=== PATIENT | male | born 1955 | race Caucasian/White ===

== ENCOUNTER 2017-11-12 15:54 | Observation (INO) | payer BC ==
[2017-11-12 16:42] LABS: #Eosinphils 0.1 thou/uL (0.0-0.7); #Lymphocytes 1.1 thou/uL (1.20-3.40); #Monocytes 0.7 thou/uL (0.11-0.59); #Neutrophils 5.8 thou/uL (1.40-6.50); %Basophils 0.6 % (0.0-1.0); %Eosinophils 0.8 % (0.0-10.0); %Lymphocytes 13.7 % (21.0-51.0); %Monocytes 9.5 % (0.0-10.0); %Neutrophils 75.4 % (42.0-75.0); Hemoglobin 14.7 g/dL (14.0-18.0); Mean Corpuscular HGB CONC 33.6 g/dL (32.0-36.0); Mean Corpuscular Hemoglobin 31.6 pg (27.0-31.0); Mean Corpuscular Volume 94.1 fL (78.0-98.0); Mean Platelet Volume 11.2 fL (7.4-10.4); Platelet Count 116 thou/uL (130-400); RBC Distribution Width 13.1 % (11.5-14.5); Red Blood Cell (RBC) Count 4.65 mill/uL (4.70-6.10); White Blood Cell (WBC) Count 7.7 thou/uL (4.8-10.8)
[2017-11-12 17:04] LABS: Troponin I 0.072 ng/mL (< 0.028)
--- NOTE | 2017-11-12 17:14 | RAD ---
RADIOGRAPH CHEST 1 VIEW: Date: 11-12-17 Time: 4:28 P.M. HISTORY: 62-year-old male with dyspnea. COMPARISON: 08-27-16 FINDINGS: Again noted is the cardiomegaly. There is diffuse haziness and increased attenuation throughout the r etrocardiac portion of the left lower lobe. Milder haziness at the medial aspect of the right lower l obe. Mild pulmonary venous prominence. Multi-lead left subclavian AICD. No pneumothorax. The retrocar diac portion of the left lower lobe appears more dense on the current study compared to the previous. It is uncertain whether this is due to positional differences or actual greater pulmonary opacificat ion of the left lower lobe. No other interval change. IMPRESSION: 1. Cardiomegaly. 2. Nonspecific left lower lobe pulmonary densities. 3. Automatic implantable cardioverter/defibrillator. TACO POS: MONIQUE
[2017-11-12] MEDS ORDERED: Sodium Chloride 0.9% 100 ML ONE (17:32)
[2017-11-12] MEDS ORDERED: cefTRIAXone\\ROCEPHIN 2 GM VIAL ONE (17:32)
[2017-11-12] MEDS ORDERED: Furosemide 40 MG/4 ML VIAL ONE (17:32)
[2017-11-12 18:20] LABS: ALT (SGPT) 33 U/L (8-55); AST (SGOT) 46 U/L (5-34); Albumin 3.6 g/dL (3.4-4.8); Alkaline Phosphatase 66 U/L (40-150); Anion Gap 17 mmol/L (10-20); BUN (Urea Nitrogen) 33 mg/dL (8.4-25.7); Bilirubin, Total 2.3 mg/dL (0.2-1.2); Calc. Creatinine Clearance 0 mL/min (70-130); Calcium 9.1 mg/dL (7.8-10.44); Carbon Dioxide 22 mmol/L (23-31); Chloride 104 mmol/L (98-107); Estimated GFR-MDRD 37; Globulin 2.3 g/dL (2.4-3.5); Glucose 61 mg/dL (80-115); Protein, Total 5.9 g/dL (5.8-8.1); Sodium 139 mmol/L (136-145)
[2017-11-12] MEDS ORDERED: Azithromycin 500 MG VIAL ONE (18:21)
[2017-11-12] MEDS ORDERED: Acetaminophen 325 MG TAB PO PRN (19:15)
[2017-11-12] MEDS ORDERED: Ondansetron ODT 4 MG TAB SL PRN (19:15)
[2017-11-12] MEDS ORDERED: Ondansetron HCl/PF 4 MG/2 ML Vial IVP PRN (19:15)
[2017-11-12 19:36] VITALS: BMI 26.3
[2017-11-12] MEDS ORDERED: Furosemide 100 MG/10 ML VIAL SLOW IVP SCH (21:00)
[2017-11-12 21:55] LABS: Troponin I 0.111 ng/mL (< 0.028)
[2017-11-13 05:35] LABS: Anion Gap 14 mmol/L (10-20); BUN (Urea Nitrogen) 35 mg/dL (8.4-25.7); Calc. Creatinine Clearance 49 mL/min (70-130); Carbon Dioxide 27 mmol/L (23-31); Chloride 103 mmol/L (98-107); Estimated GFR-MDRD 37; Glucose 65 mg/dL (80-115); Potassium 3.3 mmol/L (3.5-5.1); Sodium 141 mmol/L (136-145)
[2017-11-13 05:39] LABS: Troponin I 0.092 ng/mL (< 0.028)
[2017-11-13] MEDS ORDERED: Carvedilol 6.25 MG TAB PO SCH (11:15)
[2017-11-13] MEDS ORDERED: Furosemide 80 MG TAB PO SCH (11:15)
[2017-11-13] MEDS ORDERED: Lisinopril 10 MG TAB PO SCH (11:15)
[2017-11-13] MEDS ORDERED: Prasugrel 10 MG TAB PO SCH (11:15)
[2017-11-13] MEDS ORDERED: Alogliptin 25 MG TAB PO SCH (11:15)
[2017-11-13 11:17] VITALS: BP 129/89; TEMP 98.2
--- NOTE | 2017-11-13 11:57 | HP ---
DATE OF ADMISSION: 11/12/2017 CHIEF COMPLAINT: Shortness of breath. HISTORY OF PRESENT ILLNESS: This is a 62-year-old male patient of Dr. Celestino Chance's wit h known congestive heart failure. The patient was at home, noted that he had a sudden increase in we ight of 6-7 pounds over the last couple of days along with some shortness of breath and some slight d ifficulty in obtaining a breath. He admits that he had gone off his usual diet and had chili con que so with salted chips and including a beer on the day or so prior to the weight gain and symptoms star ting. He also noted of having a viral URI type situation going through his work office and he did no t feel necessarily the greatest for the day or so prior to coming on and the etiology for his CHF is considered postviral since it is a global hypokinesis combined CHF problem. So in the workup in the ER, he was found to have an effusion and a radiologist said it is impossible to rule out pneumonia at that time, so the ER doctor felt best to put him in overnight just to make sure with antibiotics. A s such, he was admitted for that. PAST MEDICAL HISTORY: Positive for post-viral combined global hypokinesis CHF. His initial EF on di agnosis in 2013 was 10-15%. Last EF done in the Cardiology office was 25% here in the last few month s. He also has history of type 2 diabetes, hypertension, hyperlipidemia, chronic renal insufficiency with a GFR in the 40s and a creatinine running typically 1.7 to 1.8. Also history of Gilbert's. PAST SURGICAL HISTORY: AICD placed in 2013. He had a left rotator cuff repair and also had a cath i n 2013. ALLERGIES: PENICILLIN. CURRENT MEDICATIONS: He is on Lantus 25 units at night, NovoLog sliding scale with each meal. He is on 81 mg aspirin. He is on Effient, I believe that is 100 mg a day. He is also on Lasix 40 mg b.i. d., gabapentin 600 mg daily, lisinopril 10 mg daily, Coreg 6.25 mg b.i.d., Januvia 100 mg daily, and ISMO 30 mg daily, and Zocor 40 mg daily. FAMILY HISTORY: Essentially noncontributory. 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 He is , 2 children, has no toxic habits. REVIEW OF SYSTEMS: He denies any fevers or chills. No headache, no changes in vision or hearing. N o troubles chewing or swallowing. He has had this mild to no cough, shortness of breath as stated in the HPI. No hemoptysis. His cough is definitely not productive. Denies any abdominal pain, denies any changes in GI habits. No diarrhea, constipation, or melena. Denies any dysuria or changes in G U habits. Has noted some mild edema to both lower extremities. No paresis or paresthesias. Denies any psych issues. No suicidal or homicidal ideations and no hallucinations either auditory or visual , no feelings of anxiety or depression. PHYSICAL EXAMINATION: GENERAL: He is sitting up comfortable in the bed, alert and oriented x4, no acute distress, breathin g very easily. HEENT: Essentially unremarkable. Pupils are equal, round, and reactive to light and accommodation. Extraocular movements are intact. Mucosal membranes are moist. NECK: Supple, no JVD, no bruits, no thyromegaly. HEART: S1, S2, with no rubs, murmurs, or gallops. LUNGS: Clear to auscultation. No rales, rhonchi or wheezes. There is a slight decrease in the soun d of the right lower lobe consistent with a mild effusion. ABDOMEN: Soft, nontender, nondistended, no palpable masses, no hepatosplenomegaly. Bowel sounds pos itive throughout. EXTREMITIES: Showed good palpable pulses x4, there is 1+ edema to lower extremities, but no cyanosis or clubbing. NEUROLOGIC: He is alert and oriented x4. Cranial nerves II-XII are equal and symmetrical. There ar e no focal deficits noted. Motor and strength are equal and symmetrical. LABORATORY AND X-RAY FINDINGS: White count is normal at 7.7, H&H is 14 and 43 respectively, 116,000 platelets. Neutrophils 75, lymphocytes 13.7. Sodium is 141, potassium 3.7, chloride is 103, bicarb 27, BUN 13, creatinine is 1.87, glucose at 135. Troponins x3 were 0.11 initially and then 0.09 for t he next 2. His beta natriuretic peptide was elevated at 4627, in the past it ran somewhere between 2 and 3000. Chest x-ray showed no obvious infiltrate, but an effusion, especially on the right side. ASSESSMENT: Congestive heart failure exacerbation. He was kept overnight for observation.
--- NOTE | 2017-11-13 12:07 | DIS ---
DATE OF ADMISSION: 11/12/2017 DATE OF DISCHARGE: 11/13/2017 ADMITTING DIAGNOSES: Congestive heart failure exacerbation with possible pneumonia. DISCHARGE DIAGNOSES: Congestive heart failure exacerbation with known combined post-viral congestive heart failure with an ejection fraction of 25%, also with known diabetes, hypertension, hyperlipidem ia, chronic renal insufficiency, mild hypokalemia. HOSPITAL COURSE: He is a 62-year-old white male patient of Dr. Celestino Chance's who came to the [facility] room with acute shortness of breath. History given to the ER doctor by the patient was that he had had a viral presence going through his office and he was worried about it. He was not feeling t he best so they on that x-ray in the ER, could not exclude pneumonia, so they wanted to put him in to start antibiotics at least to catch anything early on. On further history by me, it turns out the p atient had been eating chips and queso and beer and a whole lot more salty things over the day or two prior to onset of symptoms where he had a 6-7 pound weight gain at the onset of his symptoms. His w tyrone count was normal at 7.7 with no left shift, all consistent with CHF exacerbation and not consist ent with a pneumonia. After being in overnight, having IV Lasix at the time that I see him at time o f discharge, he is breathing back to baseline, feeling fine, so we had a lengthy discussion about con gestive heart failure contingency plans of increasing his 40 mg of Lasix twice a day, increasing that to 80 twice a day for a couple of days and then back down to his 40, also noted that he is not on an oral potassium supplement, recommended that he get at least an [id number] potassium to try to help with that. We discussed the dangers of salt with regards to his situation. So the plan is to discharge home. He will be on Lasix 80 mg twice a day for a couple more days and t hen back down to 40 twice a day. He will eliminate any extra salt that he has in his diet including sodas. He already has an appointment set with Dr. Chance on 11/21/2017. Also recommended that he follow up with the [facility].
--- NOTE | 2017-11-18 21:20 | EKG ---
Test Reason : Blood Pressure : / mmHG Vent. Rate : 085 BPM Atrial Rate : 085 BPM P-R Int : 138 ms QRS Dur : 132 ms QT Int : 466 ms P-R-T Axes : 021 -77 075 degrees QTc Int : 554 ms Electronic ventricular pacemaker Confirmed by RINA GRACIA DO ([id number]), editor greeting card EDDI VELAZQUEZ ([id number]) on 11/18/2017 9:19:59 PM Referred By: Confirmed By:RINA GRACIA DO
== END 2017-11-13 12:00 | disposition home or self-care (01) ==
LOC: ERS 15:54 → INTOOBSV 17:52 → 2NO 17:52
PROVIDERS: ADMIT Family Medicine; ATTEND Family Medicine
DX: I13.0 Hypertensive heart and chronic kidney disease with heart failure and stage 1 through stage 4 chronic kidney disease, or unspecified chronic kidney disease (principal); E11.22 Type 2 diabetes mellitus with diabetic chronic kidney disease; N18.9 Chronic kidney disease, unspecified; I50.9 Heart failure, unspecified; E80.4 Gilbert syndrome; E78.5 Hyperlipidemia, unspecified; Z79.4 Long term (current) use of insulin; Z79.82 Long term (current) use of aspirin; Z79.899 Other long term (current) drug therapy; Z88.0 Allergy status to penicillin; Z95.810 Presence of automatic (implantable) cardiac defibrillator
CPT/HCPCS: 36415; 36416; 71045; 80048; 80053; 82553; 83880; 84484; 85025; 87040; 93005; 96365; 96367; 96375; 96376; G0378; J0456; J0696; J1940; J7050